=== PATIENT | male | born 1980 | race Caucasian/White ===

== ENCOUNTER 2022-06-09 16:22 | Emergency (ER) | payer OTHER ==
[~2022-06-09] VITALS: Ht 185.4 cm; Wt 82.5 kg
[2022-06-09 18:24] VITALS: BP 141/80
== END 2022-06-09 18:26 | disposition home or self-care (01) ==
LOC: ED 16:22
DX: S01.511A Laceration without foreign body of lip, initial encounter (principal); W22.8XXA Striking against or struck by other objects, initial encounter; Y99.0 Civilian activity done for income or pay; Z23 Encounter for immunization; Z88.1 Allergy status to other antibiotic agents
CPT/HCPCS: 12011; 90471; 90715; 99282-25

== ENCOUNTER 2023-06-07 18:32 | Emergency (ER) | payer SELFPAY ==
[~2023-06-07] VITALS: Ht 185.4 cm; Wt 83.5 kg
[2023-06-07] MEDS ORDERED: MAXITROL EYE DRO5 ML OPTH (19:43)
[2023-06-07] MEDS ORDERED: NEOMYCIN/POLYMYXIN/DEXAMETH OPTH SUSPENSION BOTTLE OU ONE (19:45)
[2023-06-07 20:15] VITALS: BP 141/96
== END 2023-06-07 20:16 | disposition home or self-care (01) ==
LOC: ED 18:32
DX: H10.9 Unspecified conjunctivitis (principal); Z88.1 Allergy status to other antibiotic agents
CPT/HCPCS: 99283

== ENCOUNTER 2024-10-21 19:38 | Emergency (ER) | payer OTHER ==
[~2024-10-21] VITALS: Ht 182.9 cm; Wt 93.0 kg
[~2024-10-21 19:38] MED LIST: MAXITROL EYE DRO5 ML OPTH
[2024-10-21] MEDS ORDERED: MORPHINE SULFATE 4 MG/ML VIAL IV ONE (22:30)
[2024-10-21 22:47] LABS: INFLUENZA B NAA NEGATIVE (NEGATIVE); RESPIRATORY SYNCYTIAL VIR NAA NEGATIVE (NEGATIVE)
[2024-10-21 22:57] LABS: BASOPHILS 0.2 % (0.2-1.2); EOSINOPHILS 0.2 % (0.8-7.0); LYMPHOCYTES 19.7 % (21.8-53.1); MCH 30.9 PG (25.7-32.2); MCHC 34.6 g/dL (32.3-36.5); MCV 89.4 fL (79.0-92.2); MONOCYTES 11.2 % (5.3-12.2); NEUTROPHILS 68.4 % (34.0-67.9); RBC 5.01 M/uL (4.63-6.08)
[2024-10-21 23:12] LABS: ALT (SGPT) 40.0 U/L (14-59); AST (SGOT) 33.0 U/L (15-37); GLOMERULAR FILTRATION RATE,EST 107.0 mL/min (>60); PROTEIN, TOTAL 7.2 g/dL (6.4-8.2); UREA NITROGEN 9.0 mg/dL (7-18)
[2024-10-22] MEDS ORDERED: ONDANSETRON ODT8 MG PO (00:06)
[2024-10-22] MEDS ORDERED: CYCLOBENZAPRINE10 MG PO (00:06)
[2024-10-22] MEDS ORDERED: CYCLOBENZAPRINE HCL 10 MG HOME.PACK PO ONE (00:15)
[2024-10-22] MEDS ORDERED: ONDANSETRON 4 MG HOME.PACK SL ONE (00:15)
[2024-10-22 00:29] VITALS: BP 146/86
== END 2024-10-22 00:30 | disposition home or self-care (01) ==
LOC: ED 19:38
PROVIDERS: Family Medicine
DX: U07.1 COVID-19 (principal); Z88.1 Allergy status to other antibiotic agents
CPT/HCPCS: 36415; 70450; 80053; 85025; 87502; 96374; 96375; 99284-25; A9270; J2270; J2405; U0002